=== PATIENT | male | born 1950 | race Caucasian/White ===

== ENCOUNTER 2016-08-27 08:46 | Inpatient (IN) | payer OTHER ==
[~2016-08-27 08:46] MED LIST: ACETAMINOPHEN 325 MG TAB PO ONE; CEFAZOLIN 2 GM/DEXTR 100 ML IV ONE; CHLORHEXIDINE GLUC HIBICLENS 118 ML BTL TP ONE; DEXAMETHASONE 4 MG/ML VIAL IVP ONE; FAMOTIDINE 20 MG TAB PO ONE; ROPI/epiNEPH/KETOROLAC JOINT COCKTAIL IU ONE; TRANEXAMIC ACID 3,000 MG in NS 50 ML IRR ONE; TRANEXAMIC ACID 3,000 MG/50 ML BAG IRR ONE; VANCOMYCIN 1 GM VIAL ONE
[2016-08-27] MEDS ORDERED: DEXAMETHASONE 4 MG/ML VIAL ONE (09:07)
[2016-08-27] MEDS ORDERED: CEFAZOLIN 2 GM/DEXTROSE/100 ML BAG IV ONE (09:08)
[2016-08-27] MEDS ORDERED: ACETAMINOPHEN 325 MG TAB ONE (09:08)
[2016-08-27] MEDS ORDERED: FAMOTIDINE 20 MG TAB ONE (09:08)
[2016-08-27] MEDS ORDERED: LIDOCAINE 1% 2 ML INJ ONE (09:08)
[2016-08-27] MEDS ORDERED: fentaNYL 100 MCG/2 ML INJ ONE (10:07)
[2016-08-27] MEDS ORDERED: MIDAZOLAM 2 MG/2 ML VIAL ONE (10:56)
[2016-08-27] MEDS ORDERED: CYCLOBENZAPRINE 10 MG TAB PO PRN (12:33)
[2016-08-27] MEDS ORDERED: diphenhydrAMINE 25 MG CAP PO PRN (12:33)
[2016-08-27] MEDS ORDERED: MAGNESIUM HYDROXIDE 30 ML UDCUP PO PRN (12:33)
[2016-08-27] MEDS ORDERED: BISACODYL 10 MG SUPP PR PRN (12:33)
[2016-08-27] MEDS ORDERED: ONDANSETRON DISINTEGRATING 4 MG TAB PO PRN (12:33)
[2016-08-27] MEDS ORDERED: PHARMACY PAIN CONSULT 1 EA MISC PRN (12:33)
[2016-08-27] MEDS ORDERED: POLYETHYLENE GLYCOL 3350 17 GM PKT PO PRN (12:33)
[2016-08-27] MEDS ORDERED: METOCLOPRAMIDE 10 MG/2 ML VIAL IVP PRN (12:33)
[2016-08-27] MEDS ORDERED: ONDANSETRON 4 MG/2 ML VIAL IVP PRN (12:33)
[2016-08-27] MEDS ORDERED: PROMETHAZINE HCL 25 MG/ML INJ IVP PRN (12:33)
[2016-08-27] MEDS ORDERED: PROMETHAZINE HCL 25 MG SUPPR PR PRN (12:33)
[2016-08-27] MEDS ORDERED: DIPHENOXYLATE/ATROPINE LOMOTIL 1 TAB PO PRN (12:33)
[2016-08-27] MEDS ORDERED: TEMAZEPAM 15 MG CAP PO PRN (12:33)
[2016-08-27] MEDS ORDERED: LACTULOSE 20 GM/30 ML UDCUP PO PRN (12:33)
--- NOTE | 2016-08-27 12:33 | POSTOPPROG ---
Post Op Note Date of Operation: 08/27/16 Surgeon: Danita Newberry Marketing Automation Manager: yahir newberry Anesthesiologist: dr. sierra Anesthesia: Spinal, Other (Specify) (adductor canal block) Pre-op Diagnosis: left knee OA Post-op Diagnosis: same Indication: left knee pain due to OA that failed conservative measures Procedure: L TKA Findings: severe knee OA Inf/Abcess present in the surg proc area at time of surgery?: No EBL: 50-100
[2016-08-27] MEDS: LR 1,000 ML IV SCH ×2 (15:45→22:39)
[2016-08-27] MEDS ORDERED: ceFAZolin 2 GM/DEXTROSE 100 ML IV SCH (16:00)
[2016-08-27] MEDS: ACETAMINOPHEN 325 MG TAB PO SCH (18:24)
[2016-08-27] MEDS: ceFAZolin 2 GM/DEXTROSE 100 ML IV SCH (18:24)
[2016-08-27] MEDS: oxyCODONE IR 5 MG TAB PO PRN ×2 (18:25→22:36)
[2016-08-27] MEDS: SENNOSIDES/DOCUSATE SODIUM TAB PO SCH (21:21)
[2016-08-27] MEDS: ASPIRIN 325 MG TAB PO SCH (21:21)
[2016-08-27] MEDS: FAMOTIDINE 20 MG TAB PO SCH (21:21)
[2016-08-28] MEDS: ACETAMINOPHEN 325 MG TAB PO SCH ×2 (00:07→05:33)
[2016-08-28] MEDS: ceFAZolin 2 GM/DEXTROSE 100 ML IV SCH (01:59)
[2016-08-28] MEDS: oxyCODONE IR 5 MG TAB PO PRN ×3 (01:59→09:12)
[2016-08-28 03:35] VITALS: BP 140/79; RESP 18
[2016-08-28 05:57] LABS: HEMATOCRIT 34.8 % (40.0-51.0); HEMOGLOBIN 12.2 g/dL (13.7-17.5)
[2016-08-28] MEDS: FAMOTIDINE 20 MG TAB PO SCH (08:13)
[2016-08-28] MEDS: SENNOSIDES/DOCUSATE SODIUM TAB PO SCH (08:14)
[2016-08-28] MEDS: ASPIRIN 325 MG TAB PO SCH (08:14)
[2016-08-28 08:20] VITALS: PULSE 72; TEMP 97.7
[2016-08-28] MEDS ORDERED: LISINOPRIL/HCTZ 20/12.5MG 1 EA TAB PO SCH (09:00)
[2016-08-28 09:19] VITALS: O2SAT 94
--- NOTE | 2016-08-28 13:14 | GOP ---
[f rep st] OPERATIVE REPORT DATE OF OPERATION: 08/27/2016 SURGEON: Wenceslao Combs MD CHIEF DEVELOPMENT OFFICER: AVANI Bernal. ANESTHESIA: Spinal. PREOPERATIVE DIAGNOSIS: Left knee osteoarthritis. POSTOPERATIVE DIAGNOSIS: Left knee osteoarthritis. PROCEDURE PERFORMED: Left total knee arthroplasty. FINDINGS: ESTIMATED BLOOD LOSS: 30 cc. INDICATIONS: This is a 65-year-old ma with severe and progressive pain and deformity of the left kn ee unresponsive to conservative care. Risks and benefits of the surgical intervention were explaine d in detail. DESCRIPTION OF PROCEDURE: The patient was brought to the operative room and placed on the table in the supine position. Spinal anesthesia was induced without difficulty. A pneumatic tourniquet was applied about the left proximal thigh, and the leg was prepped and draped in a sterile fashion. The leg briggs was applied. After exsanguination by elevation the tourniquet was inflated to 275 mm of mercury. Incision was made anterior medial from the tibial tuberosity to a point 2 cm proximal to the superio r pole of the patella. Medial parapatellar arthrotomy was carried out from the superior pole of the patella and posteriorly in line with the fibers of the Type 2 VMO. The medial collateral ligament was elevated and the infrapatellar fat pad was resected. The patella was everted and the articular surface was excised. A 35 mm patellar button was placed. The distal femoral guide hole was drilled and the 6 degree alignment giselle was placed. An 8 mm distal femoral cut was made without difficulty. Attention was turned to the tibia and a standard 8 mm cut based on the lateral tibial condyle was pe rformed. The tibial articular surface was excised without difficulty. Attention was turned back to the femur and a size 5 femoral cutting block was positioned. Anterior, posterior, and chamfer cuts were made, followed by the intercondylar box cut. The knee was extended and the remnants of the medial and lateral meniscus were excised. The posteri or capsule was injected with ropivacaine, epinephrine and Toradol. A size 5 tibial tray was positioned. Trial reduction was then carried out. There was excellent range of motion, alignme nt, and stability using the 16 mm polyethylene. All trials were then removed. The joint was thoroughly irrigated and carefully dried. Two packages of cement and 2 grams of vancomycin were mixed in the vacuum mixer and placed on the fixation surfa griffin of all surfaces of the components. The components were implanted and all excess cement was thor oughly removed. The permanent 16 mm polyethylene was placed without difficulty. The tourniquet was deflated and all bleeders were coagulated. The wound was thoroughly irrigated an d closed using interrupted sutures of 2-0 Vicryl for the joint capsule. The subcu was closed with 3 -0 Vicryl and the skin with 4-0 Monocryl. Dermabond and Steri-Strips were applied followed by a com pressive dressing. The patient was then moved from the operating room to the recovery room in good condition, having tolerated the procedure well. PATHOLOGY: Severe osteoarthritis. ANESTHESIA: Spinal. NAME OF PROCEDURE: Total knee arthroplasty. /[id number]/MODL
--- NOTE | 2016-08-28 20:06 | SOAPPROG ---
SOAP Progress Note Assessment/Plan: Assessment: Alexis is doing well today POD 1 s/p L TKA 1) pain management: pain is well controlled on oral pain meds 2) VTE ppx: Aspirin daily 3) Anemia: level expected initially postop, continue to monitor 4) d/c planning: d/c to home today pending release from PT Plan: 08/28/16 13:05 08/28/16 20:06 Subjective: Alexis is doing well today, denies SOB ,chest pain and N/V. Objective: Vital Signs Temp Pulse Resp BP Pulse Ox 36.5 C 72 18 140/79 H 94 08/28/16 08:00 08/28/16 08:00 08/28/16 08:00 08/28/16 08:14 08/28/16 08:20 Laboratory Results 08/28/16 04:19 08/27/16 08/28/16 08/29/16 05:59 05:59 05:59 Intake Total 4254 Output Total 1820 600 Balance 2429 -600 LLE: incision dressing is clean and dry, NVI, +pf/df ICD10 Worksheet Patient Problems: Problems Problem Status Onset Primary localized osteoarthritis of left knee Acute
--- NOTE | 2016-08-29 21:32 | GDS ---
[f rep st] DISCHARGE SUMMARY ADMISSION DIAGNOSIS: Left knee osteoarthritis. DISCHARGE DIAGNOSIS: Left knee osteoarthritis. PROCEDURE: Left total knee arthroplasty. VTE PROPHYLAXIS: Aspirin recommended for 3 weeks daily. BRIEF DESCRIPTION OF HOSPITAL STAY: Patient was admitted for an elective joint arthroplasty. The p atient tolerated the procedure well and has passed physical therapy. The patient was given appropri ate antibiotic prophylaxis and venous thromboembolism prophylaxis. The patient's pain was well cont rolled on oral pain medication, patient was holding down food, and had urinated. Decision was made to discharge the patient. The patient was given post-operative prescriptions pre-operatively. PLAN: Please follow up as scheduled at Dr. Combs's office on September 18 at 11 a.m. /[id number]/MODL
== END 2016-08-28 11:36 | disposition home or self-care (01) | DRG 470 ==
LOC: F3N 08:46
PROVIDERS: ADMIT Orthopaedic Surgery; ATTEND Orthopaedic Surgery
PROC: 0SRD0J9 Replacement of Left Knee Joint with Synthetic Substitute, Cemented, Open Approach (ICD-10-PCS; principal; 2016-08-27 11:15)
DX: M17.12 Unilateral primary osteoarthritis, left knee (principal); I10 Essential (primary) hypertension
CPT/HCPCS: 97110-GP; 97116-GP; 97161-GP; 97165-GO; 97530-GP; C1713; J0171; J0690; J1100; J1885; J2250; J2550; J2795; J3010; J3370

== ENCOUNTER 2017-01-07 07:15 | Inpatient (IN) | payer OTHER ==
[2016-12-18 10:19] LABS: PLATELET COUNT 183 10^3/uL (150-400)
[2017-01-27] MEDS ORDERED: FAMOTIDINE 20 MG TAB PO ONE (15:26)
[2017-01-28] MEDS ORDERED: TRANEXAMIC ACID 3,000 MG in NS 50 ML IRR ONE (06:00)
[2017-01-28] MEDS ORDERED: ROPIVACAINE 0.2% 80 MG, EPINEPHrine 0.2 MG, KETOROLAC TROMETHAMINE 30 MG in BAG 0 ML IU ONE (06:00)
[2017-01-28] MEDS ORDERED: FAMOTIDINE 20 MG TAB PO ONE ×2 (06:00→10:45)
[2017-01-28] MEDS ORDERED: TRANEXAMIC ACID 3,000 MG/50 ML BAG IRR ONE (07:59)
[2017-01-28] MEDS ORDERED: VANCOMYCIN 1 GM VIAL ONE (08:00)
--- NOTE | 2017-01-28 09:05 | PDHPUP ---
History & Physical Update H&P update statement: This history and physical update is based on an assessment of the patient which was completed after admission or registration (within 24 hours), but prior to the surgery/procedure. H&P update: H&P reviewed & patient examined, no change in patient's condition since H&P completed
[2017-01-28] MEDS ORDERED: ACETAMINOPHEN 325 MG TAB PO ONE (09:56)
[2017-01-28] MEDS ORDERED: ceFAZolin 2 GM/SWFI 2 GM/20 ML SYR IVP ONE ×2 (09:56→10:30)
[2017-01-28] MEDS ORDERED: DEXAMETHASONE 4 MG/ML VIAL IVP ONE (09:56)
[2017-01-28] MEDS ORDERED: LR 1,000 ML IV ONE (09:58)
[2017-01-28] MEDS ORDERED: LIDOCAINE 1% 2 ML INJ ID PRN (09:58)
[2017-01-28 10:59] LABS: PLATELET COUNT 180 10^3/uL (150-400)
[2017-01-28] MEDS ORDERED: MIDAZOLAM 2 MG/2 ML VIAL ONE (11:09)
[2017-01-28] MEDS ORDERED: MIDAZOLAM 2 MG/2 ML VIAL IVP ONE (11:13)
--- NOTE | 2017-01-28 11:15 | PDANEPAE ---
ANE History of Present Illness R TKA s/f for DJD R knee ANE Past Medical History - Cardiovascular History Hx Hypertension: Yes Hx Arrhythmias: No Hx Chest Pain: No Hx Coronary Artery / Peripheral Vascular Disease: No Hx CHF / Valvular Disease: No Hx Palpitations: No - Pulmonary History Hx COPD: No Hx Asthma/Reactive Airway Disease: No Hx Recent Upper Respiratory Infection: No Hx Oxygen in Use at Home: No Hx Sleep Apnea: No Sleep Apnea Screening Result - Last Documented: Positive - Neurologic History Hx Cerebrovascular Accident: No Hx Seizures: No Hx Dementia: No - Endocrine History Hx Diabetes: No - Renal History Hx Renal Disorders: No 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 fungus on skin- no Rx currently; - Chronic Pain History Chronic Pain: Yes (R knee) - Surgical History Prior Surgeries: L total knee 08-27-16. TURP ANE Review of Systems Review of Systems: - Exercise capacity METS (RN): 4 METS ANE Patient History - Allergies Allergies/Adverse Reactions: No Known Allergies Allergy (Verified 11/18/16 15:10) - Home Medications Home medications: home medication list seen and reviewed Home Medications: Lisinopril/Hctz 20/12.5MG [Zestoretic/Prinzide 20/12.5MG (*)] 1 ea PO DAILY 07/14 [Last Taken 08/27/16] Cholecalciferol Vit D3 [Vitamin D3 (*)] 1,000 units PO DAILY 11/11/16 [Last Taken Unknown] Cyanocobalamin [Vitamin B12 (*)] 5,000 mcg PO DAILY 11/11/16 [Last Taken Unknown ] Herbals/Supplements -Info Only 1 ea PO DAILY 11/11/16 [Last Taken Unknown] - NPO status NPO Status: no food or drink >8 hours NPO Since - Liquids (Date): 01/27/17 NPO Since - Liquids (Time): 22:00 NPO Since - Solids (Date): 01/27/17 NPO Since - Solids (Time): 21:30 - Anes Hx Anes Hx: no prior problems - Smoking Hx Smoking Status: Never smoked - Alcohol Use Alcohol Use: Occasionally - Family Anes Hx Family Anes Hx: none Family Hx Anesthesia Complications: NEG ANE Labs/Vital Signs - Labs Result Diagrams: 01/28/17 10:45 12/18/16 10:00 - Labs - CBC WBC: reviewed and ok - Vital Signs Blood Pressure: 130/83 Heart Rate: 71 Respiratory Rate: 16 Height: 180.34 cm Weight: 93.894 kg ANE Physical Exam - Airway Mallampati Score: Class 1 Mouth exam: normal dental/mouth exam - Pulmonary Pulmonary: no respiratory distress - Cardiovascular Cardiovascular: regular rate and rhythym - ASA Status ASA Status: II ANE Anesthesia Plan Anesthesia Plan: spinal (R/B/A explained and pt agrees to proceed) Regional Anesthesia: single shot NB (addutor canal block)
[2017-01-28] MEDS ORDERED: PROPOFOL/EMULSION 500 MG/50 ML BOTTLE IV ONE (11:39)
[2017-01-28] MEDS ORDERED: fentaNYL 100 MCG/2 ML INJ ONE (11:39)
[2017-01-28] MEDS ORDERED: ONDANSETRON 4 MG/2 ML VIAL ONE (12:24)
[2017-01-28] MEDS ORDERED: PROPOFOL 200 MG/20 ML VIAL ONE (12:38)
[2017-01-28] MEDS ORDERED: PROMETHAZINE HCL 25 MG/ML INJ IVP PRN ×2 (12:48→13:05)
[2017-01-28] MEDS ORDERED: METOCLOPRAMIDE 10 MG/2 ML VIAL IVP PRN ×2 (12:48→13:05)
[2017-01-28] MEDS ORDERED: NALOXONE HCL 0.4 MG/ML INJ IVP PRN (12:48)
[2017-01-28] MEDS ORDERED: ALBUTEROL 3 ML DEYVIAL IH PRN (12:48)
[2017-01-28] MEDS ORDERED: MEPERIDINE 25 MG/ML SYR IVP PRN (12:48)
[2017-01-28] MEDS ORDERED: fentaNYL 100 MCG/2 ML INJ IVP PRN (12:48)
[2017-01-28] MEDS ORDERED: ACETAMINOPHEN 500 MG TAB PO PRN (12:48)
[2017-01-28] MEDS ORDERED: OXYCODONE/APAP 5/325 TAB PO PRN (12:48)
[2017-01-28] MEDS ORDERED: DEXAMETHASONE 4 MG/ML VIAL IVP PRN (12:48)
[2017-01-28] MEDS ORDERED: LR 500 ML IV PRN (12:48)
[2017-01-28] MEDS ORDERED: ONDANSETRON 4 MG/2 ML VIAL IVP PRN ×2 (12:48→13:05)
[2017-01-28] MEDS ORDERED: LABETALOL HCL 50 MG/10 ML SYR IVP PRN (12:48)
[2017-01-28] MEDS ORDERED: HYDROCODONE/APAP 5/325 TAB PO PRN (12:48)
[2017-01-28] MEDS ORDERED: DIPHENOXYLATE/ATROPINE LOMOTIL 1 TAB PO PRN (13:05)
[2017-01-28] MEDS ORDERED: BISACODYL 10 MG SUPP PR PRN (13:05)
[2017-01-28] MEDS ORDERED: ONDANSETRON DISINTEGRATING 4 MG TAB PO PRN (13:05)
[2017-01-28] MEDS ORDERED: TEMAZEPAM 15 MG CAP PO PRN (13:05)
[2017-01-28] MEDS ORDERED: diphenhydrAMINE 25 MG CAP PO PRN (13:05)
[2017-01-28] MEDS ORDERED: POLYETHYLENE GLYCOL 3350 17 GM PKT PO PRN (13:05)
[2017-01-28] MEDS ORDERED: oxyCODONE IR 5 MG TAB PO PRN (13:05)
[2017-01-28] MEDS ORDERED: CYCLOBENZAPRINE 10 MG TAB PO PRN (13:05)
[2017-01-28] MEDS ORDERED: PROMETHAZINE HCL 25 MG SUPPR PR PRN (13:05)
[2017-01-28] MEDS ORDERED: MAGNESIUM HYDROXIDE 30 ML UDCUP PO PRN (13:05)
[2017-01-28] MEDS ORDERED: LACTULOSE 20 GM/30 ML UDCUP PO PRN (13:05)
--- NOTE | 2017-01-28 13:05 | POSTOPPROG ---
Post Op Note Date of Operation: 01/28/17 Surgeon: Danita Newberry Accredited Legal Secretary: yahir newberry Anesthesiologist: dr. fagan Anesthesia: Spinal, Other (Specify) (adductor canal block) Pre-op Diagnosis: right knee OA Post-op Diagnosis: same Indication: right knee pain due to OA that failed conservative measuers Procedure: R TKA Findings: severe knee OA Inf/Abcess present in the surg proc area at time of surgery?: No EBL: 50-100
--- NOTE | 2017-01-28 13:25 | POSTANESTH ---
Post Anesthetic Evaluation Cardiovascular Status: Normal, Stable Respiratory Status: Normal, Stable Level of Consciousness/Mental Status: Can Participate in Eval Pain Control: Adequate, Prn Tx Ordered Nausea/Vomiting Control: Adequate, Prn Tx Ordered Complications Possibly Related to Anesthesia: None Noted
[2017-01-28] MEDS ORDERED: LR 1,000 ML IV SCH (13:30)
[2017-01-28] MEDS ORDERED: ceFAZolin 2 GM/DEXTROSE 100 ML IV SCH (14:00)
[2017-01-28 14:26] VITALS: RESP 16
[2017-01-28] MEDS: ACETAMINOPHEN 325 MG TAB PO SCH ×2 (18:13→22:49)
[2017-01-28] MEDS: ceFAZolin 2 GM/DEXTROSE 100 ML IV SCH (18:14)
[2017-01-28] MEDS: SENNOSIDES/DOCUSATE SODIUM TAB PO SCH (21:00)
[2017-01-28] MEDS: ASPIRIN 325 MG TAB PO SCH (21:00)
[2017-01-28] MEDS: FAMOTIDINE 20 MG TAB PO SCH (21:00)
[2017-01-29] MEDS: ceFAZolin 2 GM/DEXTROSE 100 ML IV SCH (03:20)
[2017-01-29 03:21] VITALS: TEMP 98.4
--- NOTE | 2017-01-29 05:27 | GOP ---
[f rep st] OPERATIVE REPORT DATE OF OPERATION: 01/28/2017 SURGEON: Wenceslao Combs MD BILLING AND ACCOUNTING STAFF ASSISTANT: AVANI Bernal ANESTHESIA: Spinal. PREOPERATIVE DIAGNOSIS: Right knee osteoarthritis. POSTOPERATIVE DIAGNOSIS: Right knee osteoarthritis. PROCEDURE PERFORMED: Right total knee arthroplasty. FINDINGS: ESTIMATED BLOOD LOSS: 30 cc. INDICATIONS: This is a 66-year-old male with severe and progressive pain and deformity of the right knee unresponsive to conservative care. Risks and benefits of the surgical intervention were explain ed in detail. DESCRIPTION OF PROCEDURE: The patient was brought to the operative room and placed on the table in t he supine position. Spinal anesthesia was induced without difficulty. A pneumatic tourniquet was ap plied about the right proximal thigh, and the leg was prepped and draped in a sterile fashion. The l eg briggs was applied. After exsanguination by elevation the tourniquet was inflated to 250 mm of me rcury. Incision was made anterior medial from the tibial tuberosity to a point 2 cm proximal to the superior pole of the patella. Medial parapatellar arthrotomy was carried out from the superior pole of the p atella and posteriorly in line with the fibers of the Type 2 VMO. The medial collateral ligament was elevated and the infrapatellar fat pad was resected. The patella was everted and the articular surface was excised. A 38 mm patellar button was placed. T he distal femoral guide hole was drilled and the 6 degree alignment giselle was placed. An 8 mm distal f emoral cut was made without difficulty. Attention was turned to the tibia and a standard 9 mm cut based on the lateral tibial condyle was per formed. The tibial articular surface was excised without difficulty. Attention was turned back to the femur and a size 5 Triathlon femoral cutting block was positioned. Anterior, posterior, and chamfer cuts were made, followed by the intercondylar box cut. The knee was extended and the remnants of the medial and lateral meniscus were excised. The posterio r capsule was injected with ropivacaine, epinephrine and Toradol. A size 5 MIS mini-keel tibial tray was positioned. Trial reduction was then carried out. There was excellent range of motion, alignme nt, and stability using the 11 mm polyethylene. All trials were then removed. The joint was thoroughly irrigated and carefully dried. Two packages of cement and 2 grams of vancomycin were mixed in the vacuum mixer and placed on the fixation surface s of all surfaces of the components. The components were implanted and all excess cement was thoroug hly removed. The permanent 11 mm polyethylene X3 was placed without difficulty. The tourniquet was deflated and all bleeders were coagulated. The wound was thoroughly irrigated and closed using interrupted sutures of 2-0 Vicryl for the joint capsule. The subcu was closed with 3-0 Vicryl and the skin with 4-0 Monocryl. Dermabond and Steri-Strips were applied followed by a compre ssive dressing. The patient was then moved from the operating room to the recovery room in good cond ition, having tolerated the procedure well. PATHOLOGY: Severe medial and patellofemoral osteoarthritis. /[id number]/MODL
[2017-01-29] MEDS: ACETAMINOPHEN 325 MG TAB PO SCH (06:19)
[2017-01-29 07:28] VITALS: BP 126/86; PULSE 68; O2SAT 97
[2017-01-29] MEDS: SENNOSIDES/DOCUSATE SODIUM TAB PO SCH (08:15)
[2017-01-29] MEDS: FAMOTIDINE 20 MG TAB PO SCH (08:15)
[2017-01-29] MEDS: ASPIRIN 325 MG TAB PO SCH (08:15)
[2017-01-29] MEDS ORDERED: LISINOPRIL/HCTZ 20/12.5MG 1 EA TAB PO SCH (09:00)
--- NOTE | 2017-01-29 10:04 | SOAPPROG ---
SOAP Progress Note Assessment/Plan: Assessment: Patient is doing well POD 1 s/p R TKA Pain management: pain is well controlled on oral pain meds. VTE ppx: recommend aspirin daily for 3 weeks, cont TONYA and SCDs Anemia: level is expected initially postop. Asymptomatic. Continue to monitor D/c planning: d/c to home today pending release from PT Plan: 01/29/17 10:03 01/29/17 10:04 Subjective: Alexis is doing well today ,denies SOB, chest pain and N/V. Objective: Vital Signs Temp Pulse Resp BP Pulse Ox 36.9 C 68 16 126/86 H 97 01/29/17 07:25 01/29/17 07:25 01/29/17 07:25 01/29/17 08:15 01/29/17 07:25 Laboratory Results 01/29/17 04:59 01/28/17 10:45 01/28/17 01/29/17 01/30/17 05:59 05:59 05:59 Intake Total 2180 Output Total 1725 Balance 455 RLE: incision dressing is clean and dry, NVi, +pf/df ICD10 Worksheet Patient Problems: Problems Problem Status Onset Primary localized osteoarthritis of right knee Acute Primary localized osteoarthritis of left knee Acute
--- NOTE | 2017-01-29 11:18 | ASDISCHSUM ---
Discharge Information Plan Status:Home with No Needs Medically Cleared to Leave: Discharge Date:01/29/2017 10:23 AM CM D/C Disposition:Home, Routine, Self-Care ADT D/C Disposition:Home, Routine, Self-Care Projected Discharge Date:01/29/2017 10:23 AM Transportation at D/C: Discharge Delay Reason: Follow-Up Date:01/29/2017 10:23 AM Discharge Slot: Final Diagnosis: Placement Information Patient Contact Information Contact Name:DIOGO Relationship: Address:[address] [place] [address] City:[place] Alternate Phone: [facility]/Zip Code:[place] [address] Email: Financial Information Financial Class:HMO and PPO Plans Primary Plan Desc:[facility] Primary Plan Number:[id number] Secondary Plan Desc: Secondary Plan Number: Assessment Information Intervention Information
--- NOTE | 2017-01-29 11:18 | ASDISCHSUM ---
Discharge Information Plan Status:Home with No Needs Medically Cleared to Leave: Discharge Date:01/29/2017 10:23 AM CM D/C Disposition:Home, Routine, Self-Care ADT D/C Disposition:Home, Routine, Self-Care Projected Discharge Date:01/29/2017 10:23 AM Transportation at D/C: Discharge Delay Reason: Follow-Up Date:01/29/2017 10:23 AM Discharge Slot: Final Diagnosis: Placement Information Patient Contact Information Contact Name:DIOGO Relationship: Address:[address] [place] [address] City:[place] Alternate Phone: [facility]/Zip Code:[place] [address] Email: Financial Information Financial Class:HMO and PPO Plans Primary Plan Desc:[facility] Primary Plan Number:[id number] Secondary Plan Desc: Secondary Plan Number: Assessment Information Intervention Information
--- NOTE | 2017-01-29 11:18 | ASDISCHSUM ---
Discharge Information Plan Status:Home with No Needs Medically Cleared to Leave: Discharge Date:01/29/2017 10:23 AM CM D/C Disposition:Home, Routine, Self-Care ADT D/C Disposition:Home, Routine, Self-Care Projected Discharge Date:01/29/2017 10:23 AM Transportation at D/C: Discharge Delay Reason: Follow-Up Date:01/29/2017 10:23 AM Discharge Slot: Final Diagnosis: Placement Information Patient Contact Information Contact Name:DIOGO Relationship: Address:[address] [place] [address] City:[place] Alternate Phone: [facility]/Zip Code:[place] [address] Email: Financial Information Financial Class:HMO and PPO Plans Primary Plan Desc:[facility] Primary Plan Number:[id number] Secondary Plan Desc: Secondary Plan Number: Assessment Information Intervention Information
== END 2017-01-29 10:23 | disposition home or self-care (01) | DRG 470 ==
LOC: F3N 01-28 08:58
PROVIDERS: ADMIT Orthopaedic Surgery; ATTEND Orthopaedic Surgery
PROC: 0SRC0J9 Replacement of Right Knee Joint with Synthetic Substitute, Cemented, Open Approach (ICD-10-PCS; principal; 2017-01-28 11:15)
DX: M17.11 Unilateral primary osteoarthritis, right knee (principal); I10 Essential (primary) hypertension
CPT/HCPCS: 97110-GP; 97116-GP; 97161-GP; 97165-GO; 97530-GP; C1713; J0171; J0690; J1100; J1885; J2250; J2405; J2704; J2795; J3010; J3370

== ENCOUNTER 2017-05-28 06:10 | Observation (INO) | payer OTHER ==
[2017-05-28] MEDS ORDERED: ceFAZolin 2 GM/SWFI 2 GM/20 ML SYR IVP ONE (06:12)
[2017-05-28] MEDS ORDERED: DEXAMETHASONE 10 MG/ML VIAL IVP ONE (06:12)
[2017-05-28] MEDS ORDERED: LIDOCAINE 1% 2 ML INJ ONE (06:14)
[2017-05-28] MEDS ORDERED: DEXAMETHASONE 10 MG/ML VIAL ONE (06:14)
[2017-05-28] MEDS ORDERED: ceFAZolin 2 GM/SWFI 20 ML SYR IVP ONE (06:14)
[2017-05-28] MEDS ORDERED: LR 1,000 ML IV ONE (06:49)
--- NOTE | 2017-05-28 07:15 | PDANEPAE ---
ANE Past Medical History - Cardiovascular History Hx Hypertension: Yes Hx Arrhythmias: No Hx Chest Pain: No Hx Coronary Artery / Peripheral Vascular Disease: No Hx CHF / Valvular Disease: No Hx Palpitations: No Cardiovascular History Comment: pcp monitors bp meds - Pulmonary History Hx COPD: No Hx Asthma/Reactive Airway Disease: No Hx Recent Upper Respiratory Infection: No Hx Oxygen in Use at Home: No Hx Sleep Apnea: No Sleep Apnea Screening Result - Last Documented: Positive Pulmonary History Comment: bev triggers - Neurologic History Hx Cerebrovascular Accident: No Hx Seizures: No Hx Dementia: No - Endocrine History Hx Diabetes: No - Renal History Hx Renal Disorders: No Renal History Comment: hx of turp- no issues currently - Liver History Hx Hepatic Disorders: No - Neurological & Psychiatric Hx Hx Neurological and Psychiatric Disorders: No - Cancer History Hx Cancer: No - Congenital Disorder History Hx Congenital Disorders: No - GI History Hx Gastrointestinal Disorders: No - Other Health History Other Health History: wears glasses - Chronic Pain History Chronic Pain: No - Surgical History Prior Surgeries: 01/28/17 Right TKA with Anthony. 08/27/16 Left TKA with Garret. TURP ANE Review of Systems Review of Systems: - Exercise capacity METS (RN): 4 METS ANE Patient History - Allergies Allergies/Adverse Reactions: No Known Allergies Allergy (Verified 05/18/17 10:06) - Home Medications Home Medications: Lisinopril/Hctz 20/12.5MG [Zestoretic/Prinzide 20/12.5MG (*)] 1 ea PO DAILY 07/14 [Last Taken 01/27/17] Cholecalciferol Vit D3 [Vitamin D3 (*)] 1,000 units PO DAILY 11/11/16 [Last Taken 01/21/17] Herbals/Supplements -Info Only 1 ea PO DAILY 11/11/16 [Last Taken 01/21/17] - Anes Hx Anes Hx: awareness under anesthesia - Smoking Hx Smoking Status: Never smoked - Family Anes Hx Family Hx Anesthesia Complications: none ANE Labs/Vital Signs - Vital Signs Height: 180.34 cm Weight: 97.522 kg ANE Physical Exam - Airway Mallampati Score: Class 2 - ASA Status ASA Status: II ANE Anesthesia Plan Anesthesia Plan: general endotracheal anesthesia
[2017-05-28] MEDS ORDERED: HYDROGEN PEROXIDE 236 ML BOTTLE TP ONE (07:19)
[2017-05-28] MEDS ORDERED: BACITRACIN ZINC 14.2 GM OINTTUBE TP ONE (07:19)
[2017-05-28] MEDS ORDERED: LIDOCAINE 1% 300 MG/30 ML SDV ONE (07:21)
[2017-05-28] MEDS ORDERED: fentaNYL 100 MCG/2 ML INJ ONE ×2 (07:30→08:55)
[2017-05-28] MEDS ORDERED: MIDAZOLAM 2 MG/2 ML VIAL ONE (07:30)
[2017-05-28] MEDS ORDERED: PROPOFOL 200 MG/20 ML VIAL ONE (07:30)
[2017-05-28] MEDS ORDERED: ONDANSETRON 4 MG/2 ML VIAL ONE (07:32)
[2017-05-28] MEDS ORDERED: METOCLOPRAMIDE 10 MG/2 ML VIAL ONE (07:32)
[2017-05-28] MEDS ORDERED: ROCURONIUM 50 MG/5 ML VIAL ONE (07:32)
[2017-05-28] MEDS ORDERED: PETROLAT,WHT/MIN OIL/SOD CHL 3.5 GM OPHT.OINT ONE (07:32)
--- NOTE | 2017-05-28 08:04 | PDHPUP ---
History & Physical Update H&P update statement: This history and physical update is based on an assessment of the patient which was completed after admission or registration (within 24 hours), but prior to the surgery/procedure.
[2017-05-28] MEDS ORDERED: ONDANSETRON 4 MG/2 ML VIAL IVP PRN (10:41)
[2017-05-28] MEDS ORDERED: OXYCODONE/APAP 5/325 TAB PO PRN (10:41)
[2017-05-28] MEDS ORDERED: D5W LR 1,000 ML IV SCH (10:45)
[2017-05-28] MEDS ORDERED: fentaNYL 100 MCG/2 ML INJ IVP PRN (10:46)
[2017-05-28] MEDS ORDERED: PROMETHAZINE HCL 25 MG/ML INJ IVP PRN (10:46)
[2017-05-28] MEDS ORDERED: LR 500 ML IV PRN (10:46)
[2017-05-28] MEDS ORDERED: NALOXONE HCL 0.4 MG/ML INJ IVP PRN (10:46)
[2017-05-28] MEDS: ceFAZolin 2 GM/SWFI 2 GM/20 ML SYR IVP SCH ×2 (13:39→22:26)
--- NOTE | 2017-05-28 13:49 | GOP ---
[f rep st] OPERATIVE REPORT DATE OF OPERATION: 05/28/2017 SURGEON: Gagan Kahn MD DRY PRESS OPERATOR HELPER: Gray Lockett. ANESTHESIA: General. PREOPERATIVE DIAGNOSIS: Right parotid gland tumor. POSTOPERATIVE DIAGNOSIS: Right parotid gland tumor. PROCEDURE PERFORMED: Right superficial parotidectomy with facial nerve dissection. FINDINGS: An approximately 2 x 2 x 1.5 cm mass in the tail of the left parotid gland was excised. T he facial nerve was identified and dissected out. All branches of the nerve stimulated at the end of the procedure. SPECIMENS: Right parotid tumor. ESTIMATED BLOOD LOSS: 50 mL. INDICATIONS: The patient is a 66-year-old man with a history of slowly enlarging right upper neck ma ss. 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 He presents for surgical resection. DESCRIPTION OF PROCEDURE: Patient was taken to the OR and positively identified, placed on monitors, and general anesthesia was induced. The patient was then positioned, prepped and draped in the norm al fashion. Incision was marked out and infiltrated with 6 cc of 1% lidocaine with 1:100,000 epineph rine. The skin was then sharply incised. Dissection was carried down anterior to the tragus followi ng a typical modified Tra incision. The anterior skin flap was then raised and secured with a 2-0 silk as was the earlobe. Dissection was then carried down to the anterior border of sternocleidomast oid muscle. The tail of the parotid was elevated anteriorly. The posterior belly of the digastric m uscle was identified. Dissection was carried up superiorly maintaining a broad plane of dissection i n a meticulous fashion. The main branch of the facial nerve was identified. Dissection was carried anteriorly to the pes. The mass is located completely inferiorly to this. I therefore dissected out only the inferior trunk of the facial nerve rotating off the soft tissue. The tumor was successfull y removed. The wound was irrigated with sterile saline. Hemostasis was assured. The branches of th e facial nerve were then evaluated, and all of them stimulated at a low level of 0.2 mA. At this poin t, the wound was closed, placing initially a 10-Yakut drain through a separate stab incision and sec ured with a drain stitch. The wound was then closed with interrupted 4-0 Monocryl suture followed by 5-0 plain gut in front of the ear and 4-0 Prolene from the earlobe down along the neck incision. A pressure dressing was placed, and the case was terminated. The patient's anesthetic was discontinued . He was extubated and taken to postop care in a good condition having tolerated the procedure well. COMPLICATIONS: None. /[id number]/MODL
[2017-05-28] MEDS ORDERED: ceFAZolin 2 GM/DEXTROSE 100 ML IV SCH (14:00)
--- NOTE | 2017-05-28 17:40 | SOAPPROG ---
SOAP Progress Note Assessment/Plan: Assessment:Pt doing remarkably well. No pain and excellent facial nerve function. Plan: watch over night and expect discharge tomorrow. 05/28/17 17:38 Subjective: I feel great Objective: Vital Signs Temp Pulse Resp BP Pulse Ox 37.0 C 77 18 127/72 H 92 05/28/17 15:58 05/28/17 15:58 05/28/17 15:58 05/28/17 15:58 05/28/17 15:58 05/27/17 05/28/17 05/29/17 05:59 05:59 05:59 Intake Total 2120 Output Total 1060 Balance 1060 good CN VII function no hematoma small amount of drainage. ICD10 Worksheet Patient Problems: Problems Problem Status Onset Primary localized osteoarthritis of left knee Acute Primary localized osteoarthritis of right knee Acute
[2017-05-28] MEDS ORDERED: oxyCODONE IR 5 MG TAB PO PRN (17:41)
[2017-05-28] MEDS ORDERED: ACETAMINOPHEN 325 MG TAB PO PRN (17:44)
[2017-05-29 08:19] VITALS: BP 123/77; PULSE 71; RESP 20; TEMP 98.7; O2SAT 93
--- NOTE | 2017-05-29 09:59 | PDDCSUM ---
Discharge Summary Discharge Summary: Subjective: 66 year old male POD #1 s/p right parotidecomty for parotid mass by Dr. Kahn. He was admitted for observation 05/28/17. He is doing well. Denies pain. No complaints. Objective: Vital signs stable. IRA drain output 60mL/24 hrs. Patient alert, oriented. Good facial nerve function. Incision clean, dry, intact. No swelling, edema. Exam otherwise normal. Assessment/Plan: 66 year old male POD #1 s/p right parotidectomy for parotid mass by Dr. Kahn. Doing well. IRA drain removed. Reviewed post op care. Follow up in clinic next week.
== END 2017-05-29 10:36 | disposition home or self-care (01) ==
LOC: F3E 06:10
PROVIDERS: ADMIT Otolaryngology; ATTEND Otolaryngology
PROC: 0CB80ZZ Excision of Right Parotid Gland, Open Approach (ICD-10-PCS; principal; 2017-05-28 07:45)
DX: D11.0 Benign neoplasm of parotid gland (principal); Z96.653 Presence of artificial knee joint, bilateral
CPT/HCPCS: 42415; G0378; J0171; J0690; J1100; J2250; J2405; J2704; J2765; J3010